=== PATIENT | male | born 1995 | race Native Hawaiian/Other Pacific Islander ===

== ENCOUNTER 2023-10-08 13:54 | Outpatient (CLI) | payer OTHER ==
--- NOTE | 2023-10-08 15:15 | Sleep Patient Instructions ---
Sleep Center Visit Summary - Patient Visit Information Reason for Visit: Initial consult for evaluation of sleep disordered breathing and other sleep issues. - Patient Instructions Instructions Attached: Sleep Study Home Monitor Additional Instructions: You will be completing a sleep study, either an in-lab polysomnography (PSG) or home sleep study (HST). You will follow-up in the sleep care office after the sleep study is completed to hear the results and talk about therapy, if needed. You will be called by our office staff to schedule this appointment, but you may contact us with any questions. - Clinic Information Contact: [facility] [address] [place] [address] [email or web address] T: [phone]
--- NOTE | 2023-10-08 15:20 | SLEEP CARE CONSULTATION ---
Information from patient questionnaire entered by Laney Guido. I have reviewed and concur with the information entered by Laney Guido. This document represents the service I personally performed and the decisions made by me, Melina Ravi ARNP. History of Present Illness Service Date and Time: 10/08/2023 1354 Reason for Visit: New patient Chief Complaint: reports: Unrefreshed sleep, Snoring, Excessive daytime sleepiness, Fatigue, Frequent awakenings at night Date of Onset: 4-5MONTHS Usual bedtime: 10PM Time it takes to fall asleep: 1-2HRS Snores at night: Yes Observed to quit breathing while asleep: No Sleeps alone due to snoring: Yes Number of times waking at night: VARIES Reasons for waking at night: reports: Choking, Snoring, Pain, Other (NOSIE). denies: Gasping for air Toss, Turn, or Twitch while sleeping: Yes Recalls having dreams: Yes Usually gets out of bed at: 0530; weekends 09-10 AM Feels refreshed in the morning: No Morning headache: Yes (every morning and last for an hour) Sleepy or fatigued during the day: Yes Ever fallen asleep while driving: Yes Takes day naps: Yes (every day; sometimes more than one a day) Dreams during day naps: Yes Prior sleep studies: No Additional HPI information: I had the pleasure of seeing TRISTAN LEW today regarding the possibility of him having a sleep disorder. His current complaints are excessive daytime sleepiness, fatigue, frequent night awakenings, snoring and unrefreshed sleep. He is waking up with headaches and a sore throat. He is waking up during the night frequently. He wakes up feeling "sluggish" and never is at 100%. He has no energy through the day and is falling asleep when quiet at work. He falls asleep when he is a passenger in a car. He states sometimes he feels worse after taking a nap. He snores a lot and has caught himself choking on saliva in his sleep, waking him up. He has a headaches for an hour after waking up. He also snores more when on his back. He remembers dreaming and will even dream during naps as short as 10 minutes. He says if he does not go to sleep on a full stomach he will have worse "nightmares". - Parasomnia Symptoms Ever been unable to move upon waking from sleep: No Walks in sleep: No Talks in sleep: Yes (a few times) Ever acted out dreams in sleep: No Ever felt weak in the knees when startled or emotional: Yes (has not fallen to ground) Bothered by creepy, crawly, restless sensations in legs: Yes (when staying still for too long; has to "crack" his joints to settle enough) Problems with memory or concentration: Yes (both) Subjective Initial [place] Sleepiness Scale score: 17 (10/08/2023) Past Medical History Past Medical History: reports: Arthritis, Gout, Anxiety, GERD, Other (BACK CRAMPS WHILE SLEEPING) Social History The patient's occupation is a AM. Patient is and lives in . Have you smoked in the past 12 months: No Alcohol use: Yes Alcohol amount and frequency: 6 DRINKS MONTHLY Caffeine use: Yes Caffeine amount and frequency: 2 EVERY OTHER DAY Family History Family history of sleep disordered breathing: Yes Family Hx Sleep Apnea: Mother: Snoring, Father: Snoring, Sibling: Snoring Allergies and Home Medications Known drug allergies: No Drug allergies reviewed: Yes Home medication list reviewed: Yes Allergy and home medication list: Home Medications Medication Instructions Recorded Confirmed Last Taken Type Colchicine See Rx Instructions .ROUTE .COMPLEX 10/08/23 10/08/23 Unknown History Magnesium Citrate See Rx Instructions .ROUTE .COMPLEX 10/08/23 10/08/23 Unknown History Multivitamin See Rx Instructions .ROUTE .COMPLEX 10/08/23 10/08/23 Unknown History Omeprazole See Rx Instructions .ROUTE .COMPLEX 10/08/23 10/08/23 Unknown History Review of Systems Weight gain over past 5 years: 94 Cardiovascular: reports: chest pain. denies: high blood pressure Gastrointestinal: reports: heartburn, difficulty swallowing Psychiatric: reports: depression Ear/Nose/Throat: reports: nose bleeds, dry mouth/throat, hoarseness. denies: tonsillectomy Endocrine: reports: sluggishness, excessive thirst, increased appetite, unexplained weakness Musculoskeletal: reports: joint pain, neck pain, back pain, joint swelling, muscle pain or cramping, mobility problems Physical Exam Vital signs obtained and entered by: LANEY Del Real MA Blood Pressure: 137/90 (LEFT ARM) Cuff size: regular Heart Rate: 88 O2 Saturation: 97 Height: 6 ft 0.25 in Weight: 228 lb 6.4 oz Body Mass Index: 30.7 BMI Classification: Obese Neck circumference: 17 Mouth and throat: narrow oropharynx Soft palate: long Hard palate: normal Uvula: normal Uvula visualization: 0% Mallampati Class IV Tongue: enlarged in size with teeth christie on lateral edges Tonsils: 3+/kissing Neck: normal w/o lymphadenopathy or thyromegaly Heart: regular rate and rhythm Lungs: clear bilaterally Impression and Plan 1. Suspected Obstructive Sleep Apnea-Hypopnea Syndrome, as suggested by a history of loud and irregular snoring, gasping or choking in sleep, morning headache, frequent awakening during the night, unrefreshed sleep, cognitive impairment, and excessive daytime sleepiness. Narrow oropharynx and obesity are common predisposing factors for obstructive sleep apnea-hypopnea syndrome. I recommend proceeding to polysomnography to confirm the diagnosis and to assess severity. If the patient has significant sleep disordered breathing, a manual CPAP titration study will also be performed to find the optimal treatment pressure. I informed the patient of what the sleep studies involve and after some discussion, obtained agreement to proceed. The pathophysiology of obstructive sleep apnea-hypopnea syndrome was discussed with the patient and health risks of cardiovascular and cerebrovascular disease if not treated. Risks of drowsy driving discussed in detail and patient advised to avoid long distance driving and to last puller at the first sign of drowsiness. Patient agreed to plan. * Schedule polysomnography. * Avoid long distance driving or driving when feeling sleepy. * Avoid alcohol, sedative and muscle relaxant around bedtime. * Attempt to lose weight. * Review instructions provided by trained office staff on how to prepare for the sleep study. * Return for follow-up after sleep study completed. Counseling Topics: Weight loss health impact Plan: PSG Visit Type: In Office Time Spent with Patient (minutes): 30 Provider Statement: I spent 100% of the Face to Face Visit with the patient with greater than 50% spent counseling the patient and coordination of care.
[2023-10-08 15:24] VITALS: BP 137/90; O2SAT 97
== END 2023-10-08 13:55 | disposition home or self-care (01) ==
LOC: SC 13:54
PROVIDERS: ATTEND Nurse Practitioner Family
DX: R06.83 Snoring (principal); G47.8 Other sleep disorders; R51.9 Headache, unspecified; G47.10 Hypersomnia, unspecified; R41.89 Other symptoms and signs involving cognitive functions and awareness; E66.9 Obesity, unspecified; Z68.30 Body mass index [BMI] 30.0-30.9, adult
CPT/HCPCS: 99203; 99212

== ENCOUNTER 2023-10-31 08:30 | Outpatient (CLI) | payer OTHER | END 2023-10-31 08:31 | disposition home or self-care (01) | LOC: SC 08:30 | PROVIDERS: ATTEND Nurse Practitioner Family | DX: G47.33 Obstructive sleep apnea (adult) (pediatric) (principal); R09.02 Hypoxemia; E66.9 Obesity, unspecified; Z68.30 Body mass index [BMI] 30.0-30.9, adult | CPT/HCPCS: 95806 ==

== ENCOUNTER 2023-11-07 16:27 | Outpatient (CLI) | payer OTHER ==
--- NOTE | 2023-11-07 16:43 | Sleep Patient Instructions ---
Sleep Center Visit Summary - Patient Visit Information Reason for Visit: Sleep study follow-up - Patient Instructions Additional Instructions: You will be completing a titration sleep study in our sleep lab where you will be sleeping with the CPAP machine on and we will be adjusting your pressures to find your optimal pressure settings. Once we have your results back, we will call you and schedule a follow up to go over the results. You will be called by our office staff to schedule your follow up, but you may contact us with any questions or issue as needed. - Clinic Information Contact: [facility] [address] [place] [address] [email or web address] T: [phone]
--- NOTE | 2023-11-07 16:47 | SLEEP CARE CONSULTATION ---
Information from patient questionnaire entered by Elma Guido. I have reviewed and concur with the information entered by Elma Guido. This document represents the service I personally performed and the decisions made by , Melina Ravi ARNP. History of Present Illness Service Date and Time: 11/07/2023 162 Initial [place] Sleepiness Scale score: 17 (10/08/2023) Current [place] Sleepiness Scale score: 20 (11/07/23) Additional HPI information: TRISTAN LEW returns for follow up and results of the recently performed home sleep study. The sleep study showed severe obstructive sleep apnea with an average AHI of 33.2 and ton oxygen saturation of 83%. I explained the pathophysiology behind obstructive sleep apnea. We then spent quite a bit of time discussing different treatment options. For mild obstructive sleep apnea, surgery and oral appliance are alternatives to nasal CPAP therapy but in moderate or severe cases, nasal CPAP is the most effective and reliable treatment. I reviewed the impact of weight changes on sleep apnea and strongly recommended losing weight. After some discussion, the patient will be started on nasal CPAP therapy. A manual titration study will be ordered to find optimal pressure with office adjustments. Patient counseled not drink alcohol less than 4 hours before bedtime as it can increase snoring and apnea. Patient was cautioned about risks of drowsy driving until sleepiness symptoms resolve. Sleep Study - Results Type of Sleep Study: Home sleep study (COMPLETED 10/31/23) Prior sleep studies: No Polysomnography/Home Sleep Study results: Physician Impression: The quality of the study is good. The length of the study is adequate (> 240 minutes). Please also see the tabulated and graphic data. 1. Obstructive Sleep Apnea-Hypopnea (ICD-10 G47.33), severe, with an AHI of 33.2 /hr and ton SaO2 of 83%. During the study, the patient had 201 apneas (201 obstructive, 0 central, 0 mixed) and 56 hypopneas. The longest episode lasted 112.0 seconds. The respiratory events occurred slightly more frequently during supine sleep (supine AHI was 40.0 and non-supine, 25.71). 2. Hypoxemia (ICD-10 R09.02), mild, with the lowest oxygen saturation of 83 % and 8.1 minutes with SaO2 under 90%. Baseline oxygen saturation was normal (Average oxygen saturation was 95%). Allergies and Home Medications Known drug allergies: No Drug allergies reviewed: Yes Home medication list reviewed: Yes (no changes) Allergy and home medication list: Allergies No Known Drug Allergies Allergy (Verified 11/07/23 13:18) Review of Systems Review of systems same as previous: Yes (NO CHANGE) Physical Exam Vital signs obtained and entered by: ELMA Del Real MA Blood Pressure: 138/92 (RIGHT ARM) Cuff size: regular Heart Rate: 83 O2 Saturation: 98 Height: 6 ft 0.25 in Weight: 229 lb 12.8 oz Body Mass Index: 30.9 BMI Classification: Obese Impression and Plan 1. Obstructive Sleep Apnea-Hypopnea Syndrome, severe, with lowest oxygen saturation of 83%. Obviously this is the cause of the patients symptoms of unrefreshed sleep, and excessive daytime sleepiness. Positive pressure therapy could benefit anxiety and gastric reflux. As mentioned above, the patient will be started on nasal autoCPAP therapy. A manual titration study will be completed to find optimal treatment pressure with office adjustments. Compliance guidelines also reviewed. Because the apnea is more severe supine, I instructed to avoid sleeping supine using pillow positioning until able to start CPAP use. 2. Hypoxemia, mild, with a ton oxygen saturation of 83% and 8.1 minutes spent under 90%. The baseline oxygen saturation was normal with an average oxygen saturation of 95%. 2. Obesity, unspecified. Currently patients BMI is 30.9. Obesity increases the risk of apnea, CPAP pressure requirements and overall health risks especially cardiovascular and diabetes. Thus patient is advised to lose weight. * Titration study * Attempt to lose weight. * Avoid alcohol consumption near bedtime. * Avoid supine sleep until using CPAP. * The patient is again cautioned about driving until sleepiness completely resolves. * Return after titration study to review results and start on CPAP therapy Counseling Topics: Weight loss health impact Plan: Titration study Visit Type: In Office Time Spent with Patient (minutes): 20 Provider Statement: I spent 100% of the Face to Face Visit with the patient with greater than 50% spent counseling the patient and coordination of care.
[2023-11-07 16:51] VITALS: BP 138/92; O2SAT 98
== END 2023-11-07 16:28 | disposition home or self-care (01) ==
LOC: SC 16:27
PROVIDERS: ATTEND Nurse Practitioner Family
DX: G47.33 Obstructive sleep apnea (adult) (pediatric) (principal); R09.02 Hypoxemia; E66.9 Obesity, unspecified; Z68.30 Body mass index [BMI] 30.0-30.9, adult
CPT/HCPCS: 99212; 99213

== ENCOUNTER 2023-12-06 20:38 | Outpatient (CLI) | payer OTHER | END 2023-12-06 20:39 | disposition home or self-care (01) | LOC: SC 20:38 | PROVIDERS: ATTEND Nurse Practitioner Family | DX: G47.33 Obstructive sleep apnea (adult) (pediatric) (principal) | CPT/HCPCS: 95811 ==

== ENCOUNTER 2023-12-19 13:33 | Outpatient (CLI) | payer OTHER ==
--- NOTE | 2023-12-19 14:00 | Sleep Patient Instructions ---
Sleep Center Visit Summary - Patient Visit Information Reason for Visit: Titration study follow-up - Patient Instructions Additional Instructions: You were here for follow up of titration study. You will started on CPAP therapy with pressure at 11 cmH2O. Please let us know if the pressure change is uncomfortable and we can make further adjustments of the pressure. You will be contacted to set up on your new CPAP. You will need to call us to set up a follow up appointment. You should follow up with sleep care one month after obtaining new CPAP. You may contact us sooner for any questions or concerns. - Clinic Information Contact: [facility] [address] [place] [address] [email or web address] T: [phone]
--- NOTE | 2023-12-19 14:04 | SLEEP CARE CONSULTATION ---
Information from patient questionnaire entered by Laney Guido. I have reviewed and concur with the information entered by Laney Guido. This document represents the service I personally performed and the decisions made by , Melina Ravi ARNP. History of Present Illness Service Date and Time: 12/19/2023 1333 Initial [place] Sleepiness Scale score: 17 (10/08/2023) Current [place] Sleepiness Scale score: 21 (12/19/23) Additional HPI information: TRISTAN LEW returns for follow up of the sleep study with a manual CPAP titration study performed on 12/06/23. Previous study done on 10/31/23 showed severe obstructive sleep apnea. The patient was informed of the following polysomnography findings: CPAP was initiated at 8 cmH2O and titrated up to CPAP at 15 cmH2O. CPAP at 11 cmH2O appeared to be optimal (AHI of 0 per hour on the pressure). There was supine REM sleep on the pressure. Oxygen saturation was normal throughout the night. Lower CPAP settings appeared adequate as well. The patient appeared to have tolerated positive airway pressure therapy fairly well. I explained how CPAP machine works and what to expect when using the machine. Using CPAP every night in order to get used to it was emphasized. Patient ad vised to put CPAP mask on before getting into bed so as not to fall asleep without CPAP. To assist acclimation to CPAP use, it could also be used for a short time during day while reading or watching TV. The patient was instructed to call the CPAP supplier to discuss any mechanical problem that may occur. If the mask given is uncomfortable or is difficult to keep on through the night even with adjustment, contact the CPAP supplier as many will replace with another mask style if notified before 30 days. If snoring or perceives is not getting enough air or too much air from the machine, notify this office. Patient counseled not drink alcohol less than 4 hours before bedtime as it can increase snoring and apnea. Patient was cautioned about risks of drowsy driving until sleepiness symptoms resolve. Sleep Study - Results Type of Sleep Study: Home sleep study (COMPLETED 10/31/23 TITRATION F/U COMPLETED 12/06/23) Prior sleep studies: No Polysomnography/Home Sleep Study results: IMPRESSION: The quality of the study is good. CPAP was initiated at 8 cmH2O and titrated up to CPAP at 15 cmH2O. CPAP at 11 cmH2O appeared to be optimal (AHI of 0 per hour on the pressure). There was supine REM sleep on the pressure. Oxygen saturation was normal throughout the night. Lower CPAP settings appeared adequate as well. The patient appeared to have tolerated positive airway pressure therapy fairly well. The patients sleep efficiency was reduced as the patient was awake almost throughout the second half of the night. The sleep architecture was relatively normal considering the first-night effect. There was no significant periodic leg movement of sleep. Cardiac rhythm was normal sinus rhythm without significant arrhythmia. No abnormal behavior (parasomnia) observed during the night. Allergies and Home Medications Known drug allergies: No Drug allergies reviewed: Yes Home medication list reviewed: Yes (no changes) Allergy and home medication list: Allergies No Known Drug Allergies Allergy (Verified 12/17/23 14:24) Review of Systems Review of systems same as previous: Yes (NO CHANGE) Physical Exam Vital signs obtained and entered by: LANEY Del Real MA Blood Pressure: 154/107 (RIGHT ARM) Cuff size: regular Heart Rate: 98 O2 Saturation: 77 Height: 6 ft 0.25 in Weight: 236 lb Body Mass Index: 31.8 BMI Classification: Obese Impression and Plan 1. Obstructive Sleep Apnea-Hypopnea Syndrome, severe. Patient returns after a titration study which showed optimal pressure setting to be at 11 cmH2O, 8-12 cmH2O is also appropriate. He was advised that the positive pressure therapy could benefit anxiety and gastric reflux. The patient will be started on nasal autoCPAP therapy with pressure set at 11 cmH2O. Compliance guidelines also reviewed. A copy of compliance guidelines will be given for reference at check out. He is moving from the area permanently and leaves on Saturday. I will try to get an urgent setup but that is a tight schedule and he may just have to get the CPAP mailed to him. We will see if we can do his compliance follow up but then he will need to establish care with a sleep provider in his new area. 2. Obesity, unspecified. Currently patients BMI is 31.8. Obesity increases the risk of apnea, CPAP pressure requirements and overall health risks especially cardiovascular and diabetes. Thus patient is advised to lose weight. * Nasal auto CPAP therapy, pressure at 11 cm H2O. * Attempt to lose weight. * Avoid alcohol consumption near bedtime. * Avoid supine sleep until using CPAP. * The patient is again cautioned about driving until sleepiness completely resolves. * Return one month after CPAP obtained. I will assess response to therapy and compliance at that time. Counseling Topics: Weight loss health impact Prescriptions: Auto CPAP Follow up with Sleep Care in: other (compliance followup) Visit Type: In Office Time Spent with Patient (minutes): 20 Provider Statement: I spent 100% of the Face to Face Visit with the patient with greater than 50% spent counseling the patient and coordination of care.
[2023-12-19 14:16] VITALS: BP 154/107; O2SAT 77
== END 2023-12-19 13:34 | disposition home or self-care (01) ==
LOC: SC 13:33
PROVIDERS: ATTEND Nurse Practitioner Family
DX: G47.33 Obstructive sleep apnea (adult) (pediatric) (principal); E66.9 Obesity, unspecified; Z68.31 Body mass index [BMI] 31.0-31.9, adult
CPT/HCPCS: 99212; 99213